=== PATIENT | female | born 1950 | race Two or more races ===

== ENCOUNTER → 2022-02-14 | Outpatient (CLI) | payer OTHER ==
[2022-02-14 09:46] LABS: Basophils # (auto) 0.1 10 ^3/uL (0-0.2); Basophils % (auto) 0.8 % (0.0-2.0); Eosinophils # (auto) 0.2 10 ^3/uL (0-0.8); Eosinophils % (auto) 2.5 % (0.0-7.0); Hematocrit 45.1 % (36.0-46.0); Hemoglobin 14.5 g/dL (12.2-16.2); Lymphocytes # (auto) 1.8 10 ^3/uL (0.4-5.4); Lymphocytes % (auto) 23.7 % (10.0-50.0); Mean Corpuscular Hemoglobin 28.3 pg (28.0-32.0); Mean Corpuscular Hgb Conc. 32.2 g/dL (32.0-36.0); Mean Corpuscular Volume 87.8 fL (80.0-100.0); Monocytes # (auto) 0.5 10 ^3/uL (0-1.3); Monocytes % (auto) 6.2 % (0.0-12.0); Neutrophils % (auto) 66.8 % (37.0-80.0); Nucleated Red Blood Cells % 0.1 %; Red Blood Cells 5.13 10^6/uL (4.0-5.20); Red Cell Distribution Width 13.2 % (11.8-14.3); White Blood Cell 7.5 10^3/uL (4.4-10.8)
[2022-02-14 09:53] LABS: Urine Bacteria NONE SEEN /hpf (None Seen); Urine Blood TRACE /uL (Negative); Urine Hyaline Cast FEW /lpf (0 - 2); Urine Mucus FEW (None Seen); Urine Specific Gravity 1.039 (1.001-1.035); Urine WBC 10 /hpf (0 - 5)
[2022-02-14 10:31] LABS: Albumin 3.9 g/dL (3.4-5.0); Calcium 9.2 mg/dL (8.5-10.1); Potassium 3.8 mmol/L (3.5-5.1)
[2022-02-14 10:35] LABS: BUN/Creatinine Ratio 13.1; Bilirubin, Total 0.6 mg/dL (0.2-1.0); Total Protein 7.8 g/dL (6.4-8.2)
== END | disposition home or self-care (01) ==
LOC: LAB 09:27
PROVIDERS: ATTEND Internal Medicine
DX: Z12.11 Encounter for screening for malignant neoplasm of colon (principal); E78.9 Disorder of lipoprotein metabolism, unspecified; E03.9 Hypothyroidism, unspecified; I10 Essential (primary) hypertension
CPT/HCPCS: 36415; 80053; 80061; 81001; 83036; 84443; 85025

== ENCOUNTER 2022-06-01 14:23 | Outpatient (CLI) | payer OTHER ==
[~2022-06-01] VITALS: Ht 170.2 cm; Wt 79.4 kg
[2022-06-01 14:51] LABS: Basophils # (auto) 0.1 10 ^3/uL (0-0.2); Basophils % (auto) 0.9 % (0.0-2.0); Eosinophils # (auto) 0.1 10 ^3/uL (0-0.8); Eosinophils % (auto) 1.1 % (0.0-7.0); Hematocrit 41.1 % (36.0-46.0); Hemoglobin 13.5 g/dL (12.2-16.2); Lymphocytes % (auto) 25.3 % (10.0-50.0); Mean Corpuscular Hemoglobin 29.6 pg (28.0-32.0); Mean Corpuscular Hgb Conc. 32.9 g/dL (32.0-36.0); Mean Corpuscular Volume 90.1 fL (80.0-100.0); Monocytes # (auto) 0.6 10 ^3/uL (0-1.3); Neutrophils # (auto) 5.3 10 ^3/uL (1.6-8.6); Neutrophils % (auto) 65.7 % (37.0-80.0); Red Blood Cells 4.56 10^6/uL (4.0-5.20); Red Cell Distribution Width 13.7 % (11.8-14.3)
[2022-06-01 15:05] LABS: INR 0.97 (0.9-1.15); Partial Thromboplastin Time 25.6 sec (24.6-33.4)
[2022-06-01 15:11] LABS: Albumin 3.8 g/dL (3.4-5.0); BUN/Creatinine Ratio 21.4; Calcium 9.3 mg/dL (8.5-10.1); Potassium 4.2 mmol/L (3.5-5.1)
[2022-06-01 15:14] LABS: Bilirubin, Total 0.5 mg/dL (0.2-1.0); Total Protein 7.1 g/dL (6.4-8.2)
[2022-06-01] MEDS ORDERED: VALS40TA2 PO (15:40)
[2022-06-01] MEDS ORDERED: DULO60CA PO (15:40)
[2022-06-01] MEDS ORDERED: ATOR20TA50 PO (15:40)
[2022-06-01] MEDS ORDERED: TRAZ100T3 PO (15:40)
[2022-06-01] MEDS ORDERED: DILT1CAP PO (15:40)
[2022-06-01] MEDS ORDERED: LEVO112T4 PO (15:40)
== END 2022-06-01 16:00 | disposition home or self-care (01) ==
LOC: LAB 14:23 → EDSTATUS 06-03 16:45
PROVIDERS: ATTEND Internal Medicine Gastroenterology
DX: R10.31 Right lower quadrant pain (principal); Z53.8 Procedure and treatment not carried out for other reasons; Z20.822 Contact with and (suspected) exposure to COVID-19
CPT/HCPCS: 36415; 80053; 85025; 85610; 85730; U0003

== ENCOUNTER → 2022-08-09 | Outpatient (CLI) | payer OTHER ==
[~2022-08-09] MED LIST: ATOR20TA50 PO; DILT1CAP PO; DULO60CA PO; LEVO112T4 PO; TRAZ100T3 PO; VALS40TA2 PO
== END | disposition home or self-care (01) ==
LOC: XYW 10:03
PROVIDERS: ATTEND Internal Medicine
DX: I08.2 Rheumatic disorders of both aortic and tricuspid valves (principal); R01.1 Cardiac murmur, unspecified
CPT/HCPCS: 93306

== ENCOUNTER → 2022-10-24 | Outpatient (CLI) | payer OTHER ==
[2022-10-24 09:55] LABS: Calcium 8.7 mg/dL (8.5-10.1); Potassium 4.1 mmol/L (3.5-5.1)
[2022-10-24 10:14] LABS: Albumin 3.5 g/dL (3.4-5.0); BUN/Creatinine Ratio 12.9 (10.0-20.0); Bilirubin, Total 0.7 mg/dL (0.2-1.0); Total Protein 7.1 g/dL (6.4-8.2)
== END | disposition home or self-care (01) ==
LOC: LAB 08:52
PROVIDERS: ATTEND Internal Medicine
DX: R73.03 Prediabetes (principal)
CPT/HCPCS: 36415; 80053; 83036; 84443

== ENCOUNTER 2023-01-23 11:30 | Outpatient (CLI) | payer OTHER ==
[~2023-01-23] VITALS: Ht 170.2 cm; Wt 83.9 kg
[~2023-01-23 11:30] MED LIST changes: -DULO60CA PO; +DULO60CA41 PO; +TRAZ-228 PO; -TRAZ100T3 PO
[2023-01-23 12:14] LABS: Basophils # (auto) 0.1 10 ^3/uL (0-0.2); Basophils % (auto) 1.2 % (0.0-2.0); Eosinophils # (auto) 0.1 10 ^3/uL (0-0.8); Eosinophils % (auto) 1.2 % (0.0-7.0); Hematocrit 41.7 % (36.0-46.0); Hemoglobin 13.7 g/dL (12.2-16.2); Lymphocytes # (auto) 2.3 10 ^3/uL (0.4-5.4); Lymphocytes % (auto) 23.5 % (10.0-50.0); Mean Corpuscular Hemoglobin 29.4 pg (28.0-32.0); Mean Corpuscular Hgb Conc. 32.7 g/dL (32.0-36.0); Mean Corpuscular Volume 89.9 fL (80.0-100.0); Monocytes # (auto) 0.5 10 ^3/uL (0-1.3); Monocytes % (auto) 5.5 % (0.0-12.0); Neutrophils # (auto) 6.6 10 ^3/uL (1.6-8.6); Neutrophils % (auto) 68.6 % (37.0-80.0); Nucleated Red Blood Cells % 0.1 %; Red Blood Cells 4.64 10^6/uL (4.0-5.20); Red Cell Distribution Width 13.8 % (11.8-14.3); White Blood Cell 9.7 10^3/uL (4.4-10.8)
[2023-01-23 12:31] LABS: INR 1.02 (0.9-1.15); Partial Thromboplastin Time 26.8 SEC (24.5-34.5); Prothrombin Time 10.7 sec (9.3-11.8)
[2023-01-23 12:48] LABS: Calcium 9.1 mg/dL (8.5-10.1); Potassium 4.6 mmol/L (3.5-5.1)
[2023-01-23 12:54] LABS: Albumin 3.9 g/dL (3.4-5.0); BUN/Creatinine Ratio 15.2 (10.0-20.0); Bilirubin, Total 0.7 mg/dL (0.2-1.0); Total Protein 7.3 g/dL (6.4-8.2)
[2023-01-23] MEDS ORDERED: [UNRECOGNIZED DRUG - CODE] OR (13:27)
[2023-01-23] MEDS ORDERED: ESCI1TAB36 PO (13:27)
== END 2023-01-23 12:05 | disposition home or self-care (01) ==
LOC: LAB 11:30 → EDSTATUS 01-25 14:30
PROVIDERS: ATTEND Internal Medicine Gastroenterology
DX: Z01.812 Encounter for preprocedural laboratory examination (principal); R10.31 Right lower quadrant pain
CPT/HCPCS: 36415; 80053; 85025; 85610; 85730

== ENCOUNTER → 2023-06-19 | Outpatient (CLI) | payer OTHER ==
[~2023-06-19] MED LIST changes: +ESCI1TAB36 PO; +[UNRECOGNIZED DRUG - CODE] OR
[2023-06-19 11:59] LABS: Anion Gap 6 (5-15); Carbon Dioxide 32 mmol/L (20-30); Chloride 103 mmol/L (98-107); Potassium 4.2 mmol/L (3.5-5.1); Sodium 141 mmol/L (136-145)
[2023-06-19 12:05] LABS: BUN/Creatinine Ratio 14.7 (10.0-20.0); Blood Urea Nitrogen 14 mg/dL (9-23); Glucose 103 mg/dL (74-106); Triglycerides 152 mg/dL (< 150)
[2023-06-19 12:06] LABS: LDL Cholesterol 85 mg/dL (< 100)
[2023-06-19 12:07] LABS: Cholesterol 153 mg/dL (< 200); HDL Cholesterol 50 mg/dL (40-59)
[2023-06-19 12:12] LABS: Creatinine, Urine 195.77 mg/dL (30.0-125.0)
== END | disposition home or self-care (01) ==
LOC: LAB 09:28
PROVIDERS: ATTEND Internal Medicine
DX: E78.5 Hyperlipidemia, unspecified (principal); E03.9 Hypothyroidism, unspecified; R73.03 Prediabetes
CPT/HCPCS: 36415; 80048; 80061; 82043; 82570; 83036; 84443

== ENCOUNTER → 2024-02-12 | Outpatient (CLI) | payer OTHER ==
[2024-02-12 14:37] LABS: Chloride 103 mmol/L (98-107); Potassium 4.4 mmol/L (3.5-5.1); Sodium 139 mmol/L (136-145)
[2024-02-12 14:38] LABS: Anion Gap 6 (5-15); Calcium 9.7 mg/dL (8.7-10.4); Carbon Dioxide 30 mmol/L (20-30)
[2024-02-12 14:43] LABS: BUN/Creatinine Ratio 16.8 (10.0-20.0); Blood Urea Nitrogen 17 mg/dL (9-23); Glucose 98 mg/dL (74-106)
== END | disposition home or self-care (01) ==
LOC: LAB 13:24
PROVIDERS: ATTEND Internal Medicine
DX: Z00.00 Encounter for general adult medical examination without abnormal findings (principal); R73.03 Prediabetes; N18.30 Chronic kidney disease, stage 3 unspecified
CPT/HCPCS: 36415; 80048; 83036

== ENCOUNTER → 2024-05-08 | Outpatient (CLI) | payer OTHER ==
[2024-05-08 12:16] LABS: Alanine Aminotransferase 18 U/L (7-40); Albumin 4.5 g/dL (3.2-4.8); Alkaline Phosphatase 42 U/L (46-116); Anion Gap 6 (5-15); Aspartate Aminotransferase 20 U/L (13-40); BUN/Creatinine Ratio 10.9 (10.0-20.0); Blood Urea Nitrogen 13 mg/dL (9-23); Calcium 9.7 mg/dL (8.7-10.4); Carbon Dioxide 28 mmol/L (20-31); Chloride 107 mmol/L (98-107); Cholesterol 194 mg/dL (< 200); Glucose 130 mg/dL (74-106); HDL Cholesterol 50 mg/dL (40-59); LDL Cholesterol 127 mg/dL (< 100); Potassium 4.3 mmol/L (3.5-5.1); Sodium 141 mmol/L (136-145); Total Protein 7.3 g/dL (5.7-8.2); Triglycerides 141 mg/dL (< 150)
== END | disposition home or self-care (01) ==
LOC: LAB 11:07
PROVIDERS: ATTEND Internal Medicine
DX: E78.5 Hyperlipidemia, unspecified (principal); I10 Essential (primary) hypertension; E03.9 Hypothyroidism, unspecified
CPT/HCPCS: 36415; 80053; 80061; 84443

== ENCOUNTER → 2024-08-08 | Outpatient (CLI) | payer OTHER ==
[2024-08-08 14:59] LABS: Alanine Aminotransferase 12 U/L (7-40); Albumin 4.6 g/dL (3.2-4.8); Alkaline Phosphatase 47 U/L (46-116); Anion Gap 4 (5-15); Aspartate Aminotransferase 17 U/L (13-40); BUN/Creatinine Ratio 15.6 (10.0-20.0); Blood Urea Nitrogen 17 mg/dL (9-23); Calcium 9.2 mg/dL (8.7-10.4); Carbon Dioxide 31 mmol/L (20-31); LDL Cholesterol 84 mg/dL (< 100); Potassium 4.6 mmol/L (3.5-5.1); Sodium 142 mmol/L (136-145); Triglycerides 133 mg/dL (< 150)
[2024-08-08 15:00] LABS: Bilirubin, Total 0.4 mg/dL (0.2-1.0); Cholesterol 151 mg/dL (< 200); HDL Cholesterol 54 mg/dL (40-59)
[2024-08-08 15:04] LABS: Chloride 107 mmol/L (98-107); Glucose 118 mg/dL (74-106)
== END | disposition home or self-care (01) ==
LOC: LAB 13:59
PROVIDERS: ATTEND Internal Medicine
DX: I12.9 Hypertensive chronic kidney disease with stage 1 through stage 4 chronic kidney disease, or unspecified chronic kidney disease (principal); N18.31 Chronic kidney disease, stage 3a; E78.5 Hyperlipidemia, unspecified
CPT/HCPCS: 36415; 80053; 80061; 83036; 84443

== ENCOUNTER 2025-01-15 09:13 | Inpatient (IN) | payer OTHER ==
[~2025-01-15] VITALS: Ht 170.2 cm; Wt 95.4 kg
[2025-01-15] MEDS: PANTOPRAZOLE 40 MG/10 ML VIAL INJ IV ONE (11:10)
--- NOTE | 2025-01-15 11:14 | ED.PDOC ---
GI ASSESSMENT HPI Comments 74y F who presents to the ED for chief complaint of abdominal pain. Pt states she had tacos yesterday and since has been having diffuse lower abdominal pain. Pt states the pain was 10/10 last night PM but states it has lessened since last night PM. Pt states this AM, when using restroom, she had bloody bowel movement which she states was bright red in color when wiping but dark red in color upon inspection of toilet bowl. Pt otherwise denies any associated nausea, vomiting or associated symptoms. Pt otherwise denies any other symptoms at this time. Chief Complaint: Abdominal Pain Time Seen by MD: 11:00 Reviewed Notes: Nurses Notes, Medications, Allergies Allergies: Coded Allergies: Codeine (Unverified Allergy, Intermediate, full body rash, 01/23/23) Iodine (Unverified Allergy, Mild, hives, 06/01/22) Home Meds Reported Medications Multiple Vitamins W/ Minerals (ALIVE ONCE DAILY WOMENS 5) Womens Tab, 1 OR DAILY, TAB 01/23/23 Escitalopram Oxalate (ESCITALOPRAM OXALATE) 10 Mg Tab, 10 MG PO DAILY, TAB 01/23/23 Valsartan (Diovan) 40 Mg Tab, 80 MG PO DAILY, TAB 06/01/22 Duloxetine Hcl (Cymbalta) 60 Mg Cap, 60 MG PO DAILY, CAP 06/01/22 Levothyroxine Sodium (Levothyroxine Sodium) 112 Mcg Tab, 112 MCG PO DAILY, TAB 06/01/22 Trazodone Hcl (Trazodone Hcl) 100 Mg Tab, 50 MG PO HS, TAB 06/01/22 Atorvastatin Calcium (ATORVASTATIN CALCIUM) 20 Mg Tab, 20 MG PO DAILY, TAB 06/01/22 Diltiazem HCl Extended Release (Tiazac) 240 Mg Cap, 240 MG PO DAILY, CAP 06/01/22 Information Source: Patient Mode of Arrival: Ambulatory Brought in by: self Timing: Hours Duration: Since onset Prehospital treatment: None Quality: Aching Vomitus: None Stool: Blood Streaked Severity: Moderate Recent: Possible spoiled food Recent Hx of: None Pain Location: Diffuse Modifying Factors: Food Associated sign and symptoms: Diarrhea, Abdominal Pain Past Medical History PAST MEDICAL HISTORY: High Lipids, HTN Surgical History: Cholecystectomy, Hysterectomy, Tonsillectomy Surgical History (Other): 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 Family History Family History: Family hx of Cancer, Family hx of heart ashok Social History Smoker: Non-Smoker Alcohol: Denies ETOH Use Drugs: Denies Drug Use Lives In: Home Constitutional: denies: chills, diaphoresis, fatigue, fever, malaise, sweats, weakness, others EENTM: denies: blurred vision, double vision, ear bleeding, ear discharge, ear drainage, ear pain, ear ringing, eye pain, eye redness, hearing loss, mouth pain, mouth swelling, nasal discharge, nose bleeding, nose congestion, nose cuauhtemoc n, photophobia, tearing, throat pain, throat swelling, voice changes, others Respiratory: denies: cough, hemoptysis, orthopnea, SOB at rest, shortness of breath, SOB with excertion, stridor, wheezing, others Cardiovascular: denies: chest pain, dizzy spells, diaphoresis, Dyspnea on exertion, edema, irregular heart beat, left arm pain, lightheadedness, palpitations, PND, syncope, others Gastrointestinal: reports: abdominal pain, blood streaked bowels; denies: abdomen distended, constipated, diarrhea, dysphagia, difficulty swallowing, hematemesis, melena, nausea, poor appetite, poor fluid intake, rectal bleeding, rectal pain, vomiting, others Genitourinary: denies: abnormal vagina bleeding, burning, dyspareunia, dysuria, flank pain, frequency, hematuria, incontinence, pain, , vagina discharge, urgency, others Neurological: denies: dizziness, fainting, headache, left sided numbness, left sided weakness, numbness, paresthesia, pre-existing deficit, right sided numbness, right sided weakness, seizure, speech problems, tingling, tremors, weakness, others Musculoskeletal: denies: back pain, gout, joint pain, joint swelling, muscle pain, muscle stiffness, neck pain, others Integumetry: denies: bruises, change in color, change in hair/nails, dryness, laceration, lesions, lumps, rash, wounds, others Allergic/Immunocompromised: denies: Difficulty Healing, Frequent Infections, Hives, Itching, others Hematologic/Lymphatic: denies: anemia, blood clots, easy bleeding, easy bruising, swollen glands, others Endocrine: denies: excessive hunger, excessive sweating, excessive thirst, excessive urination, flushing, intolerance to cold, intolerance to heat, unexplained weight gain, unexplained weight loss, others Psychiatric: denies: anxiety, bipolar disorder, depression, hopeless, panic disorder, schizophrenia, sleepless, suicidal, others All Other Systems: Reviewed and Negative Physical Exam General Appearance: Moderate Distress HEENT: Normal ENT Inspection, Pharynx Normal, TMs Normal Neck: Full Range of Motion, Non-Tender, Normal, Normal Inspection Respiratory: Chest Non-Tender, Lungs Clear, No Accessory Muscle Use, No Respiratory Distress, Normal Breath Sounds Cardiovascular: No Edema, No JVD, No Murmur, No Gallop, Normal Peripheral Pulses, Regular Rate/Rhythm Breast Exam: Deferred Gastrointestinal: LLQ, No Organomegaly, No Pulsatile Mass, Normal Bowel Sounds, RLQ, Soft, Tenderness Genitalia: Deferred Pelvic: Deferred Rectal: Deferred Extremities: No calf tenderness, Normal capillary refill, Normal inspection, Normal range of motion, Non-tender, No pedal edema Musculoskeletal : Apperance: Normal Neurologic: Alert, visual display manager II-XII nml as Tested, Motor Weakness, Normal Affect, Normal Mood, No Sensory Deficits Cerebellar Function: Normal Reflexes: Normal Skin: Dry, Normal Color, Warm Lymphatic: No Adenopathy Was a procedure done? Was a procedure done?: No GI differential Dx Differential Diagnosis: Cholecystitis, Constipation, Diverticular disease, Gastritis/PUD, Gastroenteritis, GI hemorrhage, Inflammatory BD, Pancreatitis, UTI, Dehydration, Food Poisoning, Bacterial, Viral, Stress Ulcer, Kidney Stone Other Differential Diagnosis lower GI bleed X-Ray, Labs, Meds, VS Vital Signs Date Time Temp Pulse Resp B/P (MAP) Pulse Ox O2 Delivery O2 Flow Rate FiO2 01/15/25 11:14 98.1 102 18 129/76 (93) 95 98.1 01/15/25 10:00 97.9 111 18 108/71 (83) 94 97.9 Lab Test 01/15/25 11:10 Range/Units White Blood Count 13.0 H 4.4-10.8 10^3/uL Red Blood Count 4.74 4.0-5.20 10^6/uL Hemoglobin 14.0 12.2-16.2 g/dL Hematocrit 42.8 36.0-46.0 % Mean Corpuscular Volume 90.3 80.0-100.0 fL Mean Corpuscular Hemoglobin 29.5 28.0-32.0 pg Mean Corpuscular Hemoglobin Concent 32.6 32.0-36.0 g/dL Red Cell Distribution Width 14.6 H 11.8-14.3 % Platelet Count 202 140-450 10^3/uL Mean Platelet Volume 8.2 6.9-10.8 fL Neutrophils (%) (Auto) 77.7 37.0-80.0 % Lymphocytes (%) (Auto) 13.4 10.0-50.0 % Monocytes (%) (Auto) 7.7 0.0-12.0 % Eosinophils (%) (Auto) 0.6 0.0-7.0 % Basophils (%) (Auto) 0.6 0.0-2.0 % Neutrophils # (Auto) 10.1 H 1.6-8.6 10 ^3/uL Lymphocytes # (Auto) 1.7 0.4-5.4 10 ^3/uL Monocytes # (Auto) 1.0 0-1.3 10 ^3/uL Eosinophils # (Auto) 0.1 0-0.8 10 ^3/uL Basophils # (Auto) 0.1 0-0.2 10 ^3/uL Nucleated Red Blood Cells 0.0 % Prothrombin Time 10.2 9.3-11.8 sec Prothrombin Time INR 0.96 0.9-1.15 Activated Partial Thromboplast Time 25.1 24.5-34.5 SEC Sodium Level 142 136-145 mmol/L Potassium Level 4.0 3.5-5.1 mmol/L Chloride Level 106 98-107 mmol/L Carbon Dioxide Level 28 20-31 mmol/L Anion Gap 8 5-15 Blood Urea Nitrogen 20 9-23 mg/dL Creatinine 1.09 H 0.550-1.02 mg/dL Glomerular Filtration Rate Calc 53 >90 mL/min BUN/Creatinine Ratio 18.3 10.0-20.0 Serum Glucose 131 H 74-106 mg/dL Calcium Level 10.1 8.7-10.4 mg/dL Total Bilirubin 0.8 0.2-1.0 mg/dL Aspartate Amino Transferase (AST) 26 13-40 U/L Alanine Aminotransferase (ALT) 24 7-40 U/L Alkaline Phosphatase 43 L 46-116 U/L Total Protein 6.9 5.7-8.2 g/dL Albumin 4.6 3.2-4.8 g/dL Current Medications Medications (Trade) Dose Ordered Sig/Antwon Route Start Time Stop Time Status Last Admin Pantoprazole Sodium (Protonix) 40 mg ONCE ONCE IV 01/15/25 11:00 01/15/25 11:01 DC 01/15/25 11:10 CAT scan of the abdomen and pelvis shows: IMPRESSION: 1. Descending colitis versus acute diverticulitis. No evidence of pericolic abscess. 2. Coronary artery disease. 3. Postoperative changes of cholecystectomy and hysterectomy. 4. No evidence of bowel obstruction, acute appendicitis, or other acute process in the abdomen or pelvis. The patient was given Protonix 40 mg IV push The patient's [place] [address] The rest of the CBC and chemistry panel are within normal limits. The patient is being started on Flagyl 500 mg IV piggyback as well as Levaquin IV piggyback The patient will be admitted to the hospitalist A GI consult will be obtained Images Reviewed?: Images reviewed and evaluated by me Time of 1ST Reevaluation: 11:30 Reevaluation 1ST: Unchanged Time of 2ND Reevaluation: 12:17 Reevaluation 2ND: Unchanged Patient Education/Counseling: Diagnosis, Treatment, Prognosis Family Education/Counseling: No Family Present SEPSIS Sepsis Screen Date sepsis recognized/suspect: Jan 15, 2025 Time Sepsis recognized/suspect: 939 Recent Procedure: No On Antibiotic Therapy: No Respiratory Rate >20: No Heart Rate >90: Yes Temp<36 C (96.8 F) or >38.3 C: No SBP <90 or MAP <65 mmHG: No New Acute Mental Status Change: No Is the patient on CPAP, BIPAP,: No Physician Orders Urinalysis (01/15/25 10:49) Ct Ab Pel Wo Con-No Oral Or Iv (01/15/25 10:49) Heplock Iv (01/15/25 10:49) Type And Screen (01/15/25 10:49) Metronidazole Ivpb Flagyl (01/15/25 12:15) Levofloxacin Levaquin (01/15/25 12:15) Vital Signs Date Time Temp Pulse Resp B/P (MAP) Pulse Ox O2 Delivery O2 Flow Rate FiO2 01/15/25 11:14 98.1 102 18 129/76 (93) 95 98.1 01/15/25 10:00 97.9 111 18 108/71 (83 94 97.9 Laboratory Tests Test 01/15/25 11:10 White Blood Count 13.0 10^3/uL (4.4-10.8) H Medications Medications Dose Ordered Sig/Antwon Route Start Time Stop Time Status Last Admin Dose Admin Pantoprazole Sodium 40 mg ONCE ONCE IV 01/15/25 11:00 01/15/25 11:01 DC 01/15/25 11:10 Departure 1 Departure Time of Disposition: 12:16 Impression: Primary Impression: Intractable abdominal pain Additional Impression: Acute diverticulitis Disposition: ADMITTED INPATIENT Admit to: Med Surg Condition: Fair Critical Care Note Critical Care Time?: No Stability Stability form required: Yes Unstable for transfer: ED Physician Assesment (Clinical assesment) Heart Score Heart Score: Heart Score Response (Comments) Value History N/A 0 EKG N/A 0 Age N/A 0 Risk Factors N/A 0 Troponin N/A 0 Total 0 I personally scribed for LANDRY MARTÍNEZ MD ([email or web address]) on 01/15/25 at 11:14. Electronically submitted by Fay Hill ([facility]). I personally scribed for LANDRY MARTÍNEZ MD ([email or web address]) on 01/15/25 at 11:30. Electronically submitted by Fay Hill ([email or web address] LANDRY MARTÍNEZ MD Jan 15, 2025 11:14
[2025-01-15 11:42] LABS: Hematocrit 42.8 % (36.0-46.0); Hemoglobin 14.0 g/dL (12.2-16.2); Mean Corpuscular Hemoglobin 29.5 pg (28.0-32.0); Mean Corpuscular Volume 90.3 fL (80.0-100.0); Nucleated Red Blood Cells % 0.0 %
--- NOTE | 2025-01-15 11:51 | DVH ---
EXAM: CT CT AB PEL WO CON-NO ORAL OR IV HISTORY: pain COMPARISON: [facility] on DOS: 08/09/22 TECHNIQUE: Helical CT images of the abdomen and pelvis were performed without IV contrast. Sagittal a nd coronal reformatted images were obtained. This CT exam was performed using one or more of the foll owing dose reduction techniques: Automated exposure control, adjustment of the mA and/or kv according to patient size, or the use of iterative reconstruction techniques. Radiation Dose: Abdomen/Pelvis: CTDIvol 20.68 mGy, DLP 1211.24 mGy*cm. FINDINGS: CT abdomen: There is mild scarring in the lung bases. There are coronary artery calcifications. The heart is not enlarged. The liver is borderline diffusely fatty density. There are calcified granuloma s in the liver and spleen. There are simple cysts in the liver. The gallbladder is surgically absen t. The noncontrast pancreas, kidneys, and adrenal glands are unremarkable. No abdominal aortic aneury sm. CT pelvis: No abnormal bowel dilatation, free air, or free fluid. There is wall thickening involving the descending colon and splenic flexure. There are multiple descending and sigmoid colon diverticul a. There is fat stranding about the descending colon. The uterus is surgically absent. The appendix a nd urinary bladder are unremarkable. IMPRESSION: 1. Descending colitis versus acute diverticulitis. No evidence of pericolic abscess. 2. Coronary artery disease. 3. Postoperative changes of cholecystectomy and hysterectomy. 4. No evidence of bowel obstruction, acute appendicitis, or other acute process in the abdomen or pel vis.
[2025-01-15 12:01] LABS: Alanine Aminotransferase 24 U/L (7-40); Albumin 4.6 g/dL (3.2-4.8); Alkaline Phosphatase 43 U/L (46-116); Anion Gap 8 (5-15); BUN/Creatinine Ratio 18.3 (10.0-20.0); Blood Urea Nitrogen 20 mg/dL (9-23); Calcium 10.1 mg/dL (8.7-10.4); Carbon Dioxide 28 mmol/L (20-31); Chloride 106 mmol/L (98-107); Glucose 131 mg/dL (74-106); INR 0.96 (0.9-1.15); Partial Thromboplastin Time 25.1 SEC (24.5-34.5); Potassium 4.0 mmol/L (3.5-5.1); Prothrombin Time 10.2 sec (9.3-11.8); Sodium 142 mmol/L (136-145); Total Protein 6.9 g/dL (5.7-8.2)
[2025-01-15 12:02] LABS: Bilirubin, Total 0.8 mg/dL (0.2-1.0)
[2025-01-15 12:59] LABS: Urine Protein, UAD Negative (Negative)
--- NOTE | 2025-01-15 22:18 | DVHHP2 ---
History of Present Illness History of Present Illness Patient is 74 years old female with past medical history of hypertension, diabetes mellitus type2, hypothyroidism, hyperlipidemia, depression came with a complaint of abdominal pain. As per patient patient started having abdominal pain started 1 day before yesterday, gradual onset, diffuse in nature, 10/10, dull in nature, no aggravating factor, relieved with some pain medication. Patient reported pain started after she ate some taco yesterday. Patient also reported seeing blood with the stool today. She noticed blood while wiping also on the toilet avilez on the stool. Patient denied any nausea or vomiting, fever, chest pain or shortness of breathe, joint pain or swelling. Initial lab workup revealed leukocytosis WBC 13.0, hemoglobin 14.0, serum creatinine 1.09, urinalysis negative for UTI. CT abdomen and pelvis suggestive acute colitis/diverticulitis, mild scaring of the lung base, fatty liver, calcified granuloma of the liver and spleen. Past Medical History hypertension, diabetes mellitus type2, hypothyroidism, hyperlipidemia, depression Past Surgical History Cholecystectomy, hysterectomy, tonsillectomy, Left shoulder surgery Past Social History Denies smoking/alcoholism/drug abuse, lives herself Review of Systems Review of Systems Allergy- codeine, iodine Personal History/ Social History- Patient was seen today at the bedside. Patient Cardiovascular- deny acute chest pain or shortness of breath or cough or palpitation Respiratory denies cough or short of breath or wheezing Gastrointestinal- nausea or vomiting Musculoskeletal-denies acute joint swelling or tenderness or redness Neurological- denies acute dysarthria, dysphagia, change in vision Psychiatry- denies depression or SI or HI Skin- denies acute rash or purpura Allergies: Coded Allergies: Codeine (Unverified Allergy, Intermediate, full body rash, 01/23/23) Iodine (Unverified Allergy, Mild, hives, 06/01/22) Exam Vital Signs Vital Signs Date Time Temp Pulse Resp B/P (MAP) Pulse Ox O2 Delivery O2 Flow Rate FiO2 01/15/25 21:03 98.1 89 18 136/74 (94) 97 98.1 01/15/25 14:55 Room Air* 0 21 Exam General examination-not in acute distress HEENT- PEERLA, no acute nasal discharge Cardiovascular- S1-S2 audible, rate and rhythm regular, no murmur Respiratory- CTAB, no wheeze or rhonchi Gastrointestinal-nontender, bowel sound+. Nondistended Musculoskeletal-no acute joint swelling or tenderness or redness Digital rectal examination-external and internal hemorrhoids, no rectal mass, bloody stool ( digital rectal examination was done in the presence of computed tomography technologist LUBNA Zunilda at the ER) Lower extremity- no leg edema Neurological- cranial nerves intact, no acute dysarthria or dysphagia Psychiatry- denies depression or SI or HI Skin- no acute rash or purpura Labs/Xrays Labs Test 01/15/25 11:10 01/15/25 10:49 Range/Units White Blood Count 13.0 H 4.4-10.8 10^3/uL Red Blood Count 4.74 4.0-5.20 10^6/uL Hemoglobin 14.0 12.2-16.2 g/dL Hematocrit 42.8 36.0-46.0 % Mean Corpuscular Volume 90.3 80.0-100.0 fL Mean Corpuscular Hemoglobin 29.5 28.0-32.0 pg Mean Corpuscular Hemoglobin Concent 32.6 32.0-36.0 g/dL Red Cell Distribution Width 14.6 H 11.8-14.3 % Platelet Count 202 140-450 10^3/uL Mean Platelet Volume 8.2 6.9-10.8 fL Neutrophils (%) (Auto) 77.7 37.0-80.0 % Lymphocytes (%) (Auto) 13.4 10.0-50.0 % Monocytes (%) (Auto) 7.7 0.0-12.0 % Eosinophils (%) (Auto) 0.6 0.0-7.0 % Basophils (%) (Auto) 0.6 0.0-2.0 % Neutrophils # (Auto) 10.1 H 1.6-8.6 10 ^3/uL Lymphocytes # (Auto) 1.7 0.4-5.4 10 ^3/uL Monocytes # (Auto) 1.0 0-1.3 10 ^3/uL Eosinophils # (Auto) 0.1 0-0.8 10 ^3/uL Basophils # (Auto) 0.1 0-0.2 10 ^3/uL Nucleated Red Blood Cells 0.0 % Prothrombin Time 10.2 9.3-11.8 sec Prothrombin Time INR 0.96 0.9-1.15 Activated Partial Thromboplast Time 25.1 24.5-34.5 SEC Sodium Level 142 136-145 mmol/L Potassium Level 4.0 3.5-5.1 mmol/L Chloride Level 106 98-107 mmol/L Carbon Dioxide Level 28 20-31 mmol/L Anion Gap 8 5-15 Blood Urea Nitrogen 20 9-23 mg/dL Creatinine 1.09 H 0.550-1.02 mg/dL Glomerular Filtration Rate Calc 53 >90 mL/min BUN/Creatinine Ratio 18.3 10.0-20.0 Serum Glucose 131 H 74-106 mg/dL Calcium Level 10.1 8.7-10.4 mg/dL Total Bilirubin 0.8 0.2-1.0 mg/dL Aspartate Amino Transferase (AST) 26 13-40 U/L Alanine Aminotransferase (ALT) 24 7-40 U/L Alkaline Phosphatase 43 L 46-116 U/L Total Protein 6.9 5.7-8.2 g/dL Albumin 4.6 3.2-4.8 g/dL Urine Color Yellow Yellow Urine Clarity Clear Clear Urine pH 5.0 5.0-9.0 Urine Specific [place] 1.022 1.001-1.035 Urine Protein Negative Negative Urine Ketones Negative Negative Urine Blood 1+ H Negative /uL Urine Nitrite Negative Negative Urine Bilirubin Negative Negative Urine Urobilinogen Normal Negative mg/dL Urine Leukocyte Esterase Negative Negative /uL Urine RBC 5 0 - 4 /hpf Urine Microscopic WBC 2 0-5 /HPF Urine Squamous Epithelial Cells Few <5 /hpf Urine Bacteria None seen None Seen /hpf Urine Hyaline Casts Few 0 - 2 /lpf Urine Mucus Few None Seen Urine Glucose Normal Normal mg/dL Assessment/Plan Assessment/Plan Assessment and plan-digital rectal examination was done in the presence of a computed tomography technologist LUBNA Mauro. #Acute colitis/diverticulitis- -CT scan of the abdomen suggestive of acute colitis/diverticulitis -continue IV normal saline at a rate of 120 mL/hour -continue ceftriaxone 1 g IV daily and metronidazole 500 mg IV t.i.d. -monitor vitals #Intractable abdominal pain likely due to acute colitis/diverticulitis -continue pain medication as prescribed -continue IV normal saline as prescribed -continue ceftriaxone and metronidazole as prescribed #Hematochezia -monitor CBC # hemorrhoids -maintain adequate hydration and avoid constipation #? Diabetes mellitus type 2 HBA1C- 6.0 - Monitor Blood glucose level #Hypertension -monitor vitals #Hypothyroidism -resumed home medication levothyroxine #Hyperlipidemia -atorvastatin 40 mg p.o. q.h.s. #Depression -trazodone 50 mg p.o. q.h.s. -Duloxetine 60 mg p.o. daily #Obesity -patient was counseled about the effect of obesity on health, weight reduction, healthy diet, physical activity # calcified granuloma of the liver in his pain #Mildly scarring of the lung Diet - clear liquid diet Goals of care, Code status , Full Code ; discussed with >15 minutes PUD prophylaxis: Pantoprazole DVT prophylaxis: Patient ambulating Plan discussed with Dr. Ngo , nursing staff, Total time spent on patient evaluation, chart review, assessment and plan, discussion discussion >35 minutes Plan discussed with: Patient, Other (RN) My Orders Orders - ROQUE HALLMAN Procedure Category Date Status Time Admit ADMIT 01/15/25 Verified 22:10 Code Status CODE 01/15/25 Verified 22:10 0.9% Ns 1000 Ml PHA 01/15/25 Verified 22:15 Complete Blood Count LAB 01/16/25 Verified 04:00 Comprehensive LAB 01/16/25 Verified Metabolic Panel 04:00 Clear Liq Diet DIET 01/16/25 Verified Breakfast Notify Md Of Changes LISSY 01/15/25 Verified From Base 22:10 Date of Service: Jan 15, 2025 Billing Provider: RAJAN NGO MD Common Visit Codes: 47325-HPIYAGW INP/OBS CARE (HIGH) Secondary Visit Codes: 91119-[id number] CARE PLAN 30 MINUTES ROQUE HALLMAN Jan 15, 2025 22:18
[2025-01-15] MEDS: PANTOPRAZOLE 40 MG TAB PO ONE (22:42)
[2025-01-15] MEDS: cefTRIAXone 1GM/50ML D5W 50 ML IV ONE (22:42)
[2025-01-16 00:05] VITALS: BP 109/62; PULSE 77; RESP 17; TEMP 97.7; O2SAT 95; O2SAT 98
[2025-01-16] MEDS: SODIUM CHLORIDE 0.9% 1,000 ML IV SCH (00:37)
[2025-01-16 01:00] VITALS: BP 118/56; PULSE 82; RESP 17; TEMP 97.7; O2SAT 96
[2025-01-16 05:00] VITALS: BP 122/59; PULSE 92; RESP 18; TEMP 98.1; O2SAT 100
[2025-01-16] MEDS: PANTOPRAZOLE 40 MG TAB PO SCH (05:36)
[2025-01-16 06:29] LABS: Hematocrit 37.9 % (36.0-46.0); Hemoglobin 12.5 g/dL (12.2-16.2); Mean Corpuscular Hemoglobin 29.6 pg (28.0-32.0); Mean Corpuscular Volume 89.8 fL (80.0-100.0); Nucleated Red Blood Cells % 0.1 %
[2025-01-16 06:48] LABS: Alanine Aminotransferase 16 U/L (7-40); Albumin 3.9 g/dL (3.2-4.8); Anion Gap 8 (5-15); BUN/Creatinine Ratio 17.5 (10.0-20.0); Blood Urea Nitrogen 18 mg/dL (9-23); Carbon Dioxide 28 mmol/L (20-31); Chloride 106 mmol/L (98-107); Glucose 99 mg/dL (74-106); Potassium 4.1 mmol/L (3.5-5.1); Sodium 142 mmol/L (136-145); Total Protein 6.0 g/dL (5.7-8.2)
[2025-01-16 06:49] LABS: Bilirubin, Total 1.0 mg/dL (0.2-1.0)
[2025-01-16 06:54] LABS: Alkaline Phosphatase 36 U/L (46-116); Calcium 8.5 mg/dL (8.7-10.4)
[2025-01-16 09:00] VITALS: BP 130/78; PULSE 83; RESP 17; TEMP 97.5; O2SAT 94
[2025-01-16] MEDS: ATORVASTATIN 20 MG TAB PO SCH (09:27)
[2025-01-16] MEDS: CITALOPRAM HYDROBR 20 MG TAB PO SCH (09:27)
[2025-01-16] MEDS: LEVOTHYROXINE SODIUM 112 MCG TAB PO SCH (09:27)
[2025-01-16] MEDS: dilTIAZem 120MG ER CAP PO SCH (09:27)
[2025-01-16] MEDS: VALSARTAN 80 MG TAB PO SCH (09:28)
[2025-01-16] MEDS ORDERED: ESCITALOPRAM OXALATE 10 MG PO SCH (10:00)
[2025-01-16] MEDS ORDERED: PATIENTS OWN MEDICATION (Valsartan (Diovan) 80 MG) PO SCH (10:00)
[2025-01-16] MEDS ORDERED: DILTIAZEM HCL 240 MG PO SCH (10:00)
[2025-01-16] MEDS ORDERED: PATIENTS OWN MEDICATION (Duloxetine Hcl (Cymbalta) 60 MG) PO SCH (10:00)
[2025-01-16] MEDS ORDERED: LEVO500T91 PO (11:32)
[2025-01-16] MEDS ORDERED: SACC1CAP3 PO (11:32)
[2025-01-16] MEDS ORDERED: METR-344 PO (11:32)
--- NOTE | 2025-01-16 11:38 | DVHDS2 ---
Discharge Summary Date of Admission Jan 15, 2025 at 22:10 Date of Discharge: Jan 16, 2025 Admitting Diagnosis Acute Colitis Labs/Diagnostic Data: Laboratory Results Test 01/16/25 05:28 01/15/25 11:10 01/15/25 10:49 White Blood Count 11.7 10^3/uL (4.4-10.8) Red Blood Count 4.22 10^6/uL (4.0-5.20) Hemoglobin 12.5 g/dL (12.2-16.2) Hematocrit 37.9 % (36.0-46.0) Mean Corpuscular Volume 89.8 fL (80.0-100.0) Mean Corpuscular Hemoglobin 29.6 pg (28.0-32.0) Mean Corpuscular Hemoglobin Concent 33.0 g/dL (32.0-36.0) Red Cell Distribution Width 14.4 % (11.8-14.3) Platelet Count 186 10^3/uL (140-450) Mean Platelet Volume 8.5 fL (6.9-10.8) Neutrophils (%) (Auto) 70.5 % (37.0-80.0) Lymphocytes (%) (Auto) 18.0 % (10.0-50.0) Monocytes (%) (Auto) 9.3 % (0.0-12.0) Eosinophils (%) (Auto) 1.5 % (0.0-7.0) Basophils (%) (Auto) 0.7 % (0.0-2.0) Neutrophils # (Auto) 8.2 10 ^3/uL (1.6-8.6) Lymphocytes # (Auto) 2.1 10 ^3/uL (0.4-5.4) Monocytes # (Auto) 1.1 10 ^3/uL (0-1.3) Eosinophils # (Auto) 0.2 10 ^3/uL (0-0.8) Basophils # (Auto) 0.1 10 ^3/uL (0-0.2) Nucleated Red Blood Cells 0.1 % Sodium Level 142 mmol/L (136-145) Potassium Level 4.1 mmol/L (3.5-5.1) Chloride Level 106 mmol/L (98-107) Carbon Dioxide Level 28 mmol/L (20-31) Anion Gap 8 (5-15) Blood Urea Nitrogen 18 mg/dL (9-23) Creatinine 1.03 mg/dL (0.550-1.02) Glomerular Filtration Rate Calc 56 mL/min (>90) BUN/Creatinine Ratio 17.5 (10.0-20.0) Serum Glucose 99 mg/dL (74-106) Hemoglobin A1c 6.0 % A1C (<5.7) Calcium Level 8.5 mg/dL (8.7-10.4) Total Bilirubin 1.0 mg/dL (0.2-1.0) Aspartate Amino Transferase (AST) 19 U/L (13-40) Alanine Aminotransferase (ALT) 16 U/L (7-40) Alkaline Phosphatase 36 U/L (46-116) Total Protein 6.0 g/dL (5.7-8.2) Albumin 3.9 g/dL (3.2-4.8) Vitamin B12 Level 235 pg/mL (211-911) Vitamin D 25-Hydroxy 52.2 ng/mL (30.0-100) Folic Acid 22.35 ng/mL (>5.38) Thyroid Stimulating Hormone (TSH) 3.38 uIU/mL (0.55-4.78) Prothrombin Time 10.2 sec (9.3-11.8) Prothrombin Time INR 0.96 (0.9-1.15) Activated Partial Thromboplast Time 25.1 SEC (24.5-34.5) Urine Color Yellow (Yellow) Urine Clarity Clear (Clear) Urine pH 5.0 (5.0-9.0) Urine Specific [place] 1.022 (1.001-1.035) Urine Protein Negative (Negative) Urine Ketones Negative (Negative) Urine Blood 1+ /uL (Negative) Urine Nitrite Negative (Negative) Urine Bilirubin Negative (Negative) Urine Urobilinogen Normal mg/dL (Negative) Urine Leukocyte Esterase Negative /uL (Negative) Urine RBC 5 /hpf (0 - 4) Urine Microscopic WBC 2 /HPF (0-5) Urine Squamous Epithelial Cells Few /hpf (<5) Urine Bacteria None seen /hpf (None Seen) Urine Hyaline Casts Few /lpf (0 - 2) Urine Mucus Few (None Seen) Urine Glucose Normal mg/dL (Normal) Other Laboratory Tests 01/16/25 05:28 Brief Hx & Hospital Course: Patient is 74 years old female with past medical history of hypertension, diabetes mellitus type2, hypothyroidism, hyperlipidemia, depression came with a complaint of abdominal pain. CT Showed Descending colitis, patients abdominal pain has resolved. Patient wishes to be discharged home. Will be discharged on a clear liquid diet for 1 week. Patient will be discharged on Levaquin and Flagyl. Needs to see GI in 6-8 weeks for outpatient colonoscopy. Operations or Procedures EXAM: CT CT AB PEL WO CON-NO ORAL OR IV HISTORY: pain COMPARISON: [facility] on DOS: 08/09/22 TECHNIQUE: Helical CT images of the abdomen and pelvis were performed without IV contrast. Sagittal and coronal reformatted images were obtained. This CT exam was performed using one or more of the following dose reduction techniques: Automated exposure control, adjustment of the mA and/or kv according to patient size, or the use of iterative reconstruction techniques. Radiation Dose: Abdomen/Pelvis: CTDIvol 20.68 mGy, DLP 1211.24 mGy*cm. FINDINGS: CT abdomen: There is mild scarring in the lung bases. There are coronary artery calcifications. The heart is not enlarged. The liver is borderline diffusely fatty density. There are calcified granulomas in the liver and spleen. There are simple cysts in the liver. The gallbladder is surgically absent. The noncontrast pancreas, kidneys, and adrenal glands are unremarkable. No abdominal aortic aneurysm. CT pelvis: No abnormal bowel dilatation, free air, or free fluid. There is wall thickening involving the descending colon and splenic flexure. There are multiple descending and sigmoid colon diverticula. There is fat stranding about the descending colon. The uterus is surgically absent. The appendix and urinary bladder are unremarkable. IMPRESSION: 1. Descending colitis versus acute diverticulitis. No evidence of pericolic abscess. 2. Coronary artery disease. 3. Postoperative changes of cholecystectomy and hysterectomy. 4. No evidence of bowel obstruction, acute appendicitis, or other acute process in the abdomen or pelvis. Condition at Discharge: Poor Final Diagnosis/Problems List Acute Colitis Discharge Disposition: Home Discharge Instruct/Medications Diet: See Comment Diet comment: Clear Liquid Diet Activity: Light activity Follow Up/Referral: Dr. Crawford in 3-5 days [facility] Medications: See Med Recc Scheduled Atorvastatin Calcium (Atorvastatin Calcium), 20 MG PO DAILY, (Reported) Diltiazem HCl Extended Release (Tiazac), 240 MG PO DAILY, (Reported) Duloxetine Hcl (Cymbalta), 60 MG PO DAILY, (Reported) Escitalopram Oxalate (Escitalopram Oxalate), 10 MG PO DAILY, (Reported) Levofloxacin Hemihydrate (Levaquin 500 Mg), 500 MG PO DAILY Levothyroxine Sodium (Levothyroxine Sodium), 112 MCG PO DAILY, (Reported) Metronidazole (Flagyl), 500 MG PO TID Multiple Vitamins W/ Minerals (Alive Once Daily Womens 5), 1 OR DAILY, (Reported) Trazodone Hcl (Trazodone Hcl), 50 MG PO HS, (Reported) Valsartan (Diovan), 80 MG PO DAILY, (Reported) Yeast (S. Boulardii)(S. Cerevi (Probiotic), 250 MG PO BID Discharge Statement: "Patient was advised to return to the ER or call 911 if any headaches, dizziness, shortness of breath, chest pain, abdominal pain, bleeding, fevers, or worsening of medical condition. Patient was counseled about treatment plan, medications, possible side effects, patientverbalized understanding. All questions were answered to the best of my ability. This discharge took greater then 30 minutes in planning, reviewing documentation, counseling the patient, and discussing with other team members." ASSESSMENT ASSESSMENT Assessment Date of Service: Jan 16, 2025 Billing Provider: RAJAN PADILLA MD Common Visit Codes: 17808-GZC/OBS DISCH DAY >30min RAJAN PADILLA MD Jan 16, 2025 11:37
[2025-01-16 12:49] VITALS: BP 130/76; PULSE 82; RESP 16; TEMP 98.3; O2SAT 96
[2025-01-16 13:26] VITALS: BP 130/78; PULSE 83; TEMP 36.8
[2025-01-16] MEDS ORDERED: cefTRIAXone 1GM/50ML D5W 50 ML IV SCH (21:00)
[2025-01-16] MEDS ORDERED: PATIENTS OWN MEDICATION (Trazodone Hcl 50 MG) PO SCH (22:00)
== END 2025-01-16 14:13 | disposition home or self-care (01) | DRG 391 ==
LOC: ER 09:13 → OVERFLOW 22:10 → WEST WING 23:37
PROVIDERS: ADMIT Internal Medicine; ATTEND Internal Medicine
DX: K52.9 Noninfective gastroenteritis and colitis, unspecified (principal); K57.33 Diverticulitis of large intestine without perforation or abscess with bleeding; E11.9 Type 2 diabetes mellitus without complications; E66.9 Obesity, unspecified; E03.9 Hypothyroidism, unspecified; E78.5 Hyperlipidemia, unspecified; I10 Essential (primary) hypertension; F32.A Depression, unspecified; K64.9 Unspecified hemorrhoids; Z88.5 Allergy status to narcotic agent; Z79.899 Other long term (current) drug therapy; Z90.49 Acquired absence of other specified parts of digestive tract; Z90.710 Acquired absence of both cervix and uterus; Z68.32 Body mass index [BMI] 32.0-32.9, adult
CPT/HCPCS: 36415; 74176; 80053; 81001; 82306; 82607; 82746; 83036; 84443; 85025; 85610; 85730; 86850; 86900; 86901; 96365; 96367; 96375; G0378; J1956; J2470; J3490

== ENCOUNTER → 2025-01-31 | Outpatient (CLI) | payer OTHER ==
[~2025-01-31] MED LIST changes: +LEVO500T91 PO; +METR-344 PO; +SACC1CAP3 PO
[2025-01-31 12:09] LABS: Alanine Aminotransferase 29 U/L (7-40); Albumin 4.5 g/dL (3.2-4.8); Anion Gap 7 (5-15); BUN/Creatinine Ratio 13.8 (10.0-20.0); Bilirubin, Total 0.9 mg/dL (0.2-1.0); Blood Urea Nitrogen 16 mg/dL (9-23); Calcium 9.7 mg/dL (8.7-10.4); Carbon Dioxide 28 mmol/L (20-31); Potassium 4.4 mmol/L (3.5-5.1); Sodium 143 mmol/L (136-145); Total Protein 7.1 g/dL (5.7-8.2)
[2025-01-31 12:11] LABS: Alkaline Phosphatase 34 U/L (46-116); Chloride 108 mmol/L (98-107); Glucose 129 mg/dL (74-106)
[2025-01-31 12:59] LABS: Microalb/Creat Ratio, Urine < 3.0
== END | disposition home or self-care (01) ==
LOC: LAB 10:54
PROVIDERS: ATTEND Internal Medicine
DX: N18.31 Chronic kidney disease, stage 3a (principal); R73.03 Prediabetes
CPT/HCPCS: 36415; 80053; 82043; 82570; 83036

== ENCOUNTER 2025-04-16 08:49 | Outpatient (CLI) | payer OTHER ==
[~2025-04-16] VITALS: Ht 170.2 cm; Wt 90.7 kg
[2025-04-16] MEDS: REGADENOSON 0.4 MG/5 ML SYRG IV ONE ×2 (10:49→10:56)
--- NOTE | 2025-04-17 14:42 | DVHSR ---
APPROVED REPORT Exam: Nuclear Stress Test BMI: 0 Stress Test Details Stress Test: Pharmacologic stress testing performed using 0.4 mg of regadenoson per 5 mL given IV ov er 10 seconds. HR Resting HR: 75 bpmMax Heart Rate (APMHR): 144.676668 bpm Max HR Achieved: 86 bpmTarget HR (85% APMHR): 122.798187 bpm % of APMHR: 59.72 Recovery HR: 78 bpm BP Resting BP: 161/81 mmHg Recovery BP: 144/73 mmHg ECG Resting ECG: Sinus Rhythm Clinical Reason for Termination: Completed protocol Nurse Comments Recieved pt. from [facility]. A/Ox4 on RA. Connected to hall monitor, VS stable. PIV flushes well. Re viewed POC. Pt. verbalized understanding of procedure including risks and side effects, agrees for st ress testing. Lexiscan stress test performed per protocol. [facility] tech administered Cardiolite. Pt. tolerated well . Pt. stable, no change on exam. VS returned to baseline. Transferred to [facility] via wheelchair w/ te ch. Stress ECG Conclusion lvef 65% normal perfusion scan NM EXAM: Myocardial Perfusion REST/STRESS Imaging Protocol: Rest Tc-99m/Stress Tc-99m 1 day Resting Data Rest SPECT myocardial perfusion imaging was performed in supine position 75 minutes following the int ravenous injection of 10.9 mCi of Tc-99m Sestamibi. Time of rest injection: 0930 Time of rest imagin Administration Route: IV Administration Site: Left AC Pharmacologic Stress Pharmacologic stress test was performed by injecting Regadenoson 0.4 mg IV push followed by the intra venous injection of 32.3 mCi of Tc-99m Sestamibi. Time of stress injection: 1115 Time of stress imagin Administration Route: IV Administration Site: Left AC Gated Stress SPECT was performed 45 minutes after stress injection. The images were gated to evaluate regional wall motion and calculate left ventricular ejection fracti on. Nuclear Conclusion Nuclear Findings: negative for ischemia lvef 65% normal perfusion scan
== END 2025-04-16 17:00 | disposition home or self-care (01) ==
LOC: XYW 08:49
PROVIDERS: ATTEND Internal Medicine
DX: R01.1 Cardiac murmur, unspecified (principal)
CPT/HCPCS: 78452; 93017; A9500; J2785